=== PATIENT | female | born 1960 | race Caucasian/White ===

== ENCOUNTER → 2024-01-28 19:02 | Outpatient (REF) | payer OTHER, SELFPAY | LOC: WDC 19:02 | PROVIDERS: ATTENDING PHYSICIAN Physician Assistant Medical | DX: Z12.31 Encounter for screening mammogram for malignant neoplasm of breast (principal) | CPT/HCPCS: 77063; 77067 ==

== ENCOUNTER → 2024-03-30 08:16 | Outpatient (REF) | payer OTHER, SELFPAY | LOC: DHCBC/DCA 08:16 | PROVIDERS: ATTENDING PHYSICIAN Internal Medicine Cardiovascular Disease; FAMILY PHYSICIAN Physician Assistant Medical | DX: R07.89 Other chest pain (principal) | CPT/HCPCS: 78452; 93017; A9500; J2785 ==

== ENCOUNTER → 2024-07-27 15:43 | Outpatient (REF) | payer OTHER, SELFPAY ==
--- NOTE | 2024-07-22 09:51 | PN.DIAED02 ---
Referral
DSME Class Series Code: [id number]
Referred For: Diabetes Self-Management Training, Medical Nutrition Therapy, Self-Blood Glucose Monitoring, Care Coordination, Disease Management
PHI Release Authorization Form Signed: Yes
Patient Problems:
Current Active Problems
Problem Status Onset
Type 2 diabetes mellitus without complications ~06/22/24
Demographic
(1) Type 2 diabetes mellitus without complications
Status: Acute Onset Date: ~06/22/24 Code(s): E11.9 - Type 2 diabetes mellitus without complications
Patient's primary language-: Niuean
Education: College degree
Occupation: Professional
Hours Worked/Week: > 40
Shift: Day
- Social
Primary Support Person: Self
Living Arrangements: Self & spouse
- Learning Methods
Preferred Method: Reading, Hands-on demonstration
Barriers to Learning: None
Glycemic Control
- Blood Glucose Monitoring Assessment
Date: 06/22/24 (145)
Blood glucose monitoring at home: Yes
Monitor Brands: OneTouch
Time: fasting
Patient uses Alternate Site Testing: No
Patient instructed on Use and Limitation: No
- Hemoglobin A1c
Date: 06/22/24
A1C Percentage (%): 6.8
Medical History of Diabetes
Family Diabetes History: Unknown
Previous Diabetes Education: No
Previous visit with Dietitian: No
Complications/Comorbidity/Specialist: Gastrointestinal disease (GERD), Hyperlipidemia, Liver disease (Fatty Liver), Neuropathy, Pulmonary disease (Asthma)
Measures
- Anthropometrics
Height: 5 ft 3 in
Actual Weight: 87.09 kg
- Blood Pressure / Pulse
Blood pressure: 133/79
Pulse: 84
- Diabetes Management
Medical Management for Diabetes: Complete physical exam (05/2024), Dental exam (06/2024), Flu Vaccination (07/2023)
Self-Care
- Tobacco Usage
Do you now, or have you ever smoked?: Never smoked
Smoking Cessation Referral and/or Information provided: No
- Alcohol & Drugs Usage
Drinks Alcohol: Yes
Amount/day: Social Occasions
Uses Recreational Drugs: No
- Meals & Dining
Meals & Dining: Patient skips meals: No, Food Intolerance / Allergy: No, Cultural / Yarsani Dietary Needs: No
Primary Food Factory Assembler: Self
Primary B[employer] Furnace: In-home support ([employer] Job [employer])
Dining Out Frequency: 1-3x per week
- Physical Activity
Physical Limitation: No
Patient participates in physical Activity: Yes
Activity Types: Swimming
Duration: 31-40 minutes
Frequency: 3-5x per week
Intensity: Easy
- Self Foot-Care
Foot Problems: None
Performs Self Foot-Exam: Yes
Frequency: Daily
- Patient-Self Assessment
Diabetes Knowledge: Fair
Feelings About Diabetes: Acceptance
General Health: Fair
Importance of Health: Extremely
Stress Level: High
Diabetes Interferes With:: Nothing
Barriers to Diabetes Management: Nothing
Depression Survey Score: 4
- Diabetes Identification
Carries Diabetes Identification: No
Diabetes Identification Information Provided: No
Care Plan
- Education Needs
Patient Education Needs: Diabetes disease process, Chronic complications, Acute complications, Monitoring, Nutritional management, Goal setting & problem solving
Recommended Diabetes Training Program based on assessment: Outpatient Diabetes Education Program
- Plan of Care
Plan of Care:
Met with Monika today for registration and initiation of Diabetes Self management. Pt was recommended by her PCP due to new Diabetes Dx, A1C of 6.8% that was noted on recent blood work in early June. Patient reports that she was started on
Metformin 500mg daily and is waiting for Ozempic prior auth.
Pt was provided a script for a glucose monitor- OneTouch and is waiting to fish bait picker her test strips and lancets. Reviewed instructions on how to check her blood glucose and set a schedule for fasting glucose monitoring.
Pt was counseled with emphasis on need to adhere to an intensive lifestyle modification that includes healthy eating, exercising and monitoring blood glucose. Goals for physical activity were established; pt will increase her exercise time to 30
minutes 5 times a week
--- NOTE | 2024-07-22 10:37 | PN.DIAED04 ---
Education Record
- Education Record
Class Attended: Other (Pre-Registration for DSME Classes)
DSME Class Series Code: [id number]
Instructor: Nurse Practitioner
Class Length (mins): 60
Pre-Program Knowledge: Needs review / Assistance
Pre-Test Score (%): 62
Goals
- Goal 1
Being Active: Exercise 30 minutes-5 times per week
Goals To Be Evaluated: Exercise 30 mins-5x/week
- Goal 2
Healthy Eating: Make better food choices, Reduce portion sizes
Goals To Be Evaluated: Make better food choices. Reduce portion sizes
- Goal 3
Monitoring: Follow monitoring schedule
Goals To Be Evaluated: Follow monitoring times
--- NOTE | 2024-07-28 14:09 | PN.DIAED14 ---
This is to notify you that your patient with diabetes, NBA GOLDSTEIN ( 1960), has enrolled in our diabetes self-management classes that are being held at [facility].
These classes will include an introduction to diabetes, diet, medication, exercise and prevention of complications. At the end of our class series, you will receive a report of your patient's participation and progress for your records.
Please contact me at the Diabetes Center, , if there is any particular information regarding your patient that might be helpful to me.
Sincerely,
EUSEBIO Dial-, [facility]
Director
Diabetes & Nutrition Services
== END ==
LOC: DES 15:43
PROVIDERS: ATTENDING PHYSICIAN Physician Assistant Medical
DX: E11.9 Type 2 diabetes mellitus without complications (principal)
CPT/HCPCS: 99078

== ENCOUNTER → 2024-08-03 12:00 | Outpatient (REF) | payer OTHER, SELFPAY ==
--- NOTE | 2024-08-04 10:34 | PN.DIAED04 ---
Education Record
- Education Record
Class Attended: Class 2
DSME Class Series Code: [id number]
Instructor: Registered Dietitian (Rachel Bowen, RD, LDN, CDE)
Class Length (mins): 120
== END ==
LOC: DES 12:00
PROVIDERS: ATTENDING PHYSICIAN Physician Assistant Medical
DX: E11.9 Type 2 diabetes mellitus without complications (principal)
CPT/HCPCS: 99078

== ENCOUNTER → 2024-08-10 12:00 | Outpatient (REF) | payer OTHER, SELFPAY ==
--- NOTE | 2024-08-11 12:15 | PN.DIAED04 ---
Education Record
- Education Record
Class Attended: Class 3
DSME Class Series Code: [id number]
Instructor: Registered Dietitian (Rachel Bowen, RD, LDN, CDE)
Class Length (mins): 120
Post-Class 2 & 3 Test Score (%): 81
== END ==
LOC: DES 12:00
PROVIDERS: ATTENDING PHYSICIAN Physician Assistant Medical
DX: E11.9 Type 2 diabetes mellitus without complications (principal)
CPT/HCPCS: 99078

== ENCOUNTER → 2024-08-17 12:00 | Outpatient (REF) | payer OTHER, SELFPAY | LOC: DES 12:00 | PROVIDERS: ATTENDING PHYSICIAN Physician Assistant Medical | DX: E11.9 Type 2 diabetes mellitus without complications (principal) | CPT/HCPCS: 99078 ==

== ENCOUNTER → 2024-08-24 12:00 | Outpatient (REF) | payer OTHER, SELFPAY ==
--- NOTE | 2024-08-25 11:22 | PN.DIAED16 ---
This is to notify you that your patient with diabetes, NBA GOLDSTEIN ( 1960), has attended the entire series of Diabetes Self-Management Education Classes.
Class 1 (120 minutes): Diabetes Overview - monitoring, stress/psychosocial adjustment, support, goal setting
Class 2 (120 minutes): Meal Planning - serving sizes, menu plans
Class 3 (120 minutes): Introduction to Carbohydrate Counting, Analyzing Food Labels
Class 4 (120 minutes): Medication, Exercise and Activity
Class 5 (120 minutes): Sick Day Management, Strategies to Reduce Complications, Problem Solving, Resources
The following behavioral goals were identified:
Exercise 30 mins-5x/week
Make better food choices
Reduce portion sizes
Follow monitoring times
A follow-up call will be made within three to six months to evaluate attainment of these goals and to check post-program Hemoglobin A1c and overall progress. All class participants are encouraged to contact me if I can be any further assistance in
learning how to manage their diabetes.
Sincerely,
EUSEBIO Dial-, [facility]
Director
Diabetes & Nutrition Services
--- NOTE | 2024-08-26 14:24 | PN.DIAED04 ---
Education Record
- Education Record
Class Attended: Class 5
DSME Class Series Code: [id number]
Instructor: Nurse Practitioner (EUSEBIO Mancilla)
Class Curriculum:
Outpatient Diabetes Education Program:
Class 5 (120 minutes)
Prevent, detect, and treat acute complications
Prevent, detect, and treat chronic complications through risk reduction
Develop personal strategies to address psychosocial issues and concerns
Development of diabetes self-management support plan
Letter to physician with DSMS plan attached sent
Class Length (mins): 120
Post-Program Knowledge: Demonstrates competency
Post-Test Score (%): 93
Post-Program Assessment
- Post-Program Assessment
Actual Weight: 85.275 kg
Blood pressure: 149/76
Post-Program Depression Survey Score: 3
Reviewing Previous Goals?: Yes
Pre-Program Depression Survey Score: 4
- Goals 1 Evaluation
Goals To Be Evaluated: Exercise 30 mins-5x/week
- Goals 2 Evaluation
Goals To Be Evaluated: Make better food choices. Reduce portion sizes
- Goals 3 Evaluation
Goals To Be Evaluated: Follow monitoring times
== END ==
LOC: DES 12:00
PROVIDERS: ATTENDING PHYSICIAN Physician Assistant Medical
DX: E11.9 Type 2 diabetes mellitus without complications (principal)
CPT/HCPCS: 99078

== ENCOUNTER → 2025-03-30 12:39 | Outpatient (REF) | payer BC, SELFPAY | LOC: WDC 12:39 | PROVIDERS: ATTENDING PHYSICIAN Physician Assistant Medical | DX: Z12.31 Encounter for screening mammogram for malignant neoplasm of breast (principal) | CPT/HCPCS: 77063; 77067 ==

== ENCOUNTER → 2025-06-23 10:58 | Outpatient (REF) | payer BC, SELFPAY | LOC: RAD 10:58 | PROVIDERS: ATTENDING PHYSICIAN Physician Assistant | DX: M79.604 Pain in right leg (principal); M79.605 Pain in left leg; R26.2 Difficulty in walking, not elsewhere classified | CPT/HCPCS: 93925 ==